=== PATIENT | male | born 1985 | race Caucasian/White ===

== ENCOUNTER 2017-11-27 15:14 | Emergency (ER) | payer BC, OTHER ==
[~2017-11-27] VITALS: Ht 190.5 cm; Wt 90.7 kg
[2017-11-27] MEDS ORDERED: VYVANSE10 MG PO (15:25)
--- NOTE | 2017-11-27 15:47 | Emergency Room Report ---
History of Present Illness General Chief Complaint: Lower Extremity Injury Source: Patient Present Illness HPI 32 yo male presents to ER complaining of right knee pain. Patient states he was running to catch a pass and suddenly felt his knee buckle inward. Patient reports he is able to ambulate with a limp. Patient states he was seen by [facility] last night who prescribed him Motrin for pain; states they did not take an x-ray. Patient states he was instructed by PCP to report to ER. Patient reports scheduled orthopedic appointment on December 08. Patient reports taking Ibuprofen for relief of pain symptoms. Patient complains of generalized knee pain and swelling. Denies ecchymosis, erythema. Patient denies fever, chest pain, SOB, rash. Allergies: Coded Allergies: No Known Allergies (Unverified , 11/27/17) Patient History Past Medical History: see triage record Social History: Denies: smoking, alcohol use, drug use Reviewed Nursing Documentation: PMH: Agreed, PSxH: Agreed Nursing Documentation-PMH Past Medical History: No Stated History Review of Systems All Other Systems: negative except mentioned in HPI Physical Exam Vital Signs Date Time Temp Pulse Resp B/P (MAP) Pulse Ox O2 Delivery O2 Flow Rate FiO2 11/27/17 15:17 98.4 85 17 115/82 98 Room Air Sp02 EP Interpretation: reviewed, normal General Appearance: no apparent distress, alert, GCS 15, non-toxic Head: normocephalic, atraumatic Eyes: bilateral eye normal inspection, bilateral eye PERRL ENT: hearing grossly normal, normal pharynx, no angioedema, normal voice Neck: full range of motion, supple/symm/no masses Respiratory: chest non-tender, lungs clear, normal breath sounds, speaking full sentences Cardiovascular #1: regular rate, rhythm, no edema Musculoskeletal: back normal, digits/nails normal, gait/station normal, non- tender, no calf tenderness, decreased range of motion - secondary to pain and swelling, Pito's Sign negative, other - Right knee: Negative Lockhart test, negative anterior drawer, negative posterior drawer, negative Lorena, edema from knee to proximal tibia, no ecchymosis, no swelling Neurologic: alert, oriented x3, responsive, motor strength/tone normal, sensory intact, speech normal Psychiatric: mood/affect normal Skin: normal color, no rash, warm/dry, well hydrated Medical Decision Making PA Attestation Dr. Kinney is my supervising Physician whom patient management has been discussed with. Diagnostic Impression: Primary Impression: Knee pain ER Course Pt. presents to the ED c/o right knee pain. Ddx considered but are not limited to fracture, sprain, strain, contusion. Vital signs: are WNL, pt. is afebrile ORDERS: An X-ray of the right knee was ordered, results show no acute fracture , per the official radiology report. ED INTERVENTIONS: Toradol Knee immobilizer. The affected right knee was checked afterwards by me showing good alignment and support with distal neurovascular functioning intact. Crutches provided. DISCHARGE: Patient reports he does not need rx for pain medication, states he received prescription at Urgent Care x1 day ago. At this time pt. is stable for d/c to home. Will provide printed patient care instructions, and any necessary prescriptions. Patient instructed to follow with primary care provider in 3 - 5 days and to request further orthopedic follow-up. Care plan and follow up instructions have been discussed with the patient prior to discharge. Patient instructed on RICE method: rest, ice, compression, elevation. Patient instructed to NWB. Take medications as directed. Patient questions asked and answered. ER precautions given, patient instructed to return to ER immediately for any new or worsening of symptoms. Other X-Ray Diagnostic Results Other X-Ray Diagnostic Results : X-Ray ordered: Right knee # of Views/Limited Vs Complete: 3 View Indication: Pain EP Interpretation: Yes PA Xray: Interpretation reviewed, by supervising MD, and agrees with findings. Impression: No acute disease PA Scribe Text Jourdan Saavedra PA-Silvia Last Vital Signs Date Time Temp Pulse Resp B/P (MAP) Pulse Ox O2 Delivery O2 Flow Rate FiO2 11/27/17 15:17 98.4 85 17 115/82 98 Room Air Disposition: HOME, SELF-CARE Condition: Stable Patient Instructions: Knee Sprain Additional Instructions: Patient instructed to follow up with primary care provider and discuss further referral to orthopedics for further treatment and imaging. Patient instructed on RICE method: rest, ice, compression, elevation. Patient instructed to NWB pending further evaluation from ortho or primary care provider.. Take medications as directed. Patient questions asked and answered. ER precautions given, patient instructed to return to ER immediately for any new or worsening of symptoms. Cedric Saavedra Nov 27, 2017 15:47
[2017-11-27] MEDS ORDERED: Ketorolac 30mg Inj IM ONE (17:00)
--- NOTE | 2017-11-27 17:06 | Diagnostic Imaging Report ---
Indication: Pain 3 views of the right knee were obtained. Findings: No acute fracture, malalignment, or joint effusion are identified. Joint space is relatively well-maintained. Impression: Negative for acute findings.
[2017-11-27 17:19] VITALS: BP 110/79
== END 2017-11-27 17:20 | disposition home or self-care (01) ==
LOC: EMR 16:00
DX: M25.561 Pain in right knee (principal)
CPT/HCPCS: 29530; 73562; 96372; 99283; J1885